=== PATIENT | male | born 1965 | race Caucasian/White ===

== ENCOUNTER → 2018-01-23 14:21 | Outpatient (CLI) | payer OTHER, SELFPAY ==
[2018-01-23 14:57] LABS: Bacteria Urine None Seen; RBC Urine None Seen (0-5/HPF)
[2018-01-23 15:14] LABS: Add Manual Diff / Slide Review NO; Basophils Percent Auto 3.7 % (0-2); Eosinophils Percent Auto 0.4 % (2-4); Hematocrit 45.6 % (41-53); Hemoglobin 15.6 g/dL (13.5-17.5); Lymphocytes Percent Auto 38.3 % (25-40); Mean Corpuscular HGB Conc 34.1 % (30-36); Mean Corpuscular Hemoglobin 31.4 PG (26-34); Mean Corpuscular Volume 91.9 fL (80-100); Monocytes Percent Auto 8.2 % (3-14); Neutrophils Absolute Auto 3200 /uL (3000-5900); Neutrophils Percent Auto 49.4 % (50-75); Platelet Count 250 X10^3/uL (150-400); Red Blood Cell Count 4.97 X10^6/uL (4.5-5.9); Red Cell Distribution Width 13.2 % (11.6-14.8); White Blood Cell Count 6.6 X10^3/uL (4.5-11.0)
[2018-01-23 15:24] LABS: Hemoglobin A1C% w Est Avg Glu 5.4 % (4.0-6.0)
[2018-01-23 15:27] LABS: Alanine Aminotransferase 42 IU/L (21-72); Albumin 4.6 g/dL (3.5-5.0); Albumin Globulin Ratio 1.7 (1.0-2.8); Alkaline Phosphatase 91 U/L (38-126); Aspartate Aminotransferase 39 IU/L (17-59); Bilirubin Total 0.4 mg/dL (0.2-1.3); Blood Urea Nitrogen 21 mg/dL (9-20); Calcium 9.2 mg/dL (8.4-10.2); Carbon Dioxide 26 mmol/L (22-32); Chloride 104 mmol/L (98-107); Cholesterol 156 mg/dL (140-199); Estimated Glomerular Filt Rate > 60.0 mL/min (>60); Globulin 2.7 g/dL (1.7-4.1); Glucose 98 mg/dL (70-100); HDL Cholesterol 43 mg/dL (40-60); HEMOLYSIS < 15 (0-50); LDL Cholesterol Calculated 79 mg/dL (<100); Potassium 3.8 mmol/L (3.4-5.1); Sodium 144 mmol/L (137-145); Total Protein 7.3 g/dL (6.3-8.2); Triglycerides 169 mg/dL (35-150)
[2018-01-23 15:40] LABS: Appearance Urine UA CLEAR; Bilirubin Urine UA NEGATIVE (NEGATIVE); Color Urine UA YELLOW; Glucose Urine UA NEGATIVE (Normal); Ketones Urine UA NEGATIVE (NEGATIVE); Leukocyte Esterase Urine UA NEGATIVE (NEGATIVE); Nitrite Urine UA NEGATIVE (Negative); Occult Blood Urine UA NEGATIVE (Negative); Protein Urine UA NEGATIVE (Negative); Specific Gravity Urine UA 1.025 (1.000-1.035); Urobilinogen Urine UA 0.2 E.U./dL (0.2)
[2018-01-23 16:11] LABS: Squamous Epithelial Cell Urine 0-1 /HPF; WBC Urine 0-1/HPF (0-5/HPF)
[2018-01-23 16:12] LABS: Culture Indicated Urine Cult Not Indicated
[2018-01-23 16:15] LABS: Thyroid Stimulating Hormone 3.02 uIU/mL (0.47-4.68)
== END ==
PROVIDERS: Visit Provider Family Medicine
DX: Z12.5 Encounter for screening for malignant neoplasm of prostate (principal); I49.1 Atrial premature depolarization; Z13.220 Encounter for screening for lipoid disorders; Z13.6 Encounter for screening for cardiovascular disorders; K58.9 Irritable bowel syndrome, unspecified
CPT/HCPCS: 36415; 80053; 80061; 81001; 83036; 84153; 84443; 85025

== ENCOUNTER → 2022-12-05 09:24 | Outpatient (CLI) | payer OTHER, SELFPAY ==
[2022-12-05 20:02] LABS: Alanine Aminotransferase 70 IU/L (<50); Albumin 4.1 g/dL (3.5-5.0); Albumin Globulin Ratio 1.5 (1.0-2.8); Alkaline Phosphatase 116 U/L (38-126); Aspartate Aminotransferase 44 IU/L (17-59); Bilirubin Total 0.6 mg/dL (0.2-1.3); Blood Urea Nitrogen 16 mg/dL (9-20); Calcium 9.4 mg/dL (8.4-10.2); Carbon Dioxide 25 mmol/L (22-32); Chloride 105 mmol/L (98-107); Cholesterol 165 mg/dL (140-199); Estimated Glomerular Filt Rate > 60 mL/min (>60); Globulin 2.7 g/dL (1.7-4.1); Glucose 109 mg/dL (70-100); HDL Cholesterol 41 mg/dL (40-60); LDL Cholesterol Calculated 100 mg/dL (<100); Potassium 4.4 mmol/L (3.4-5.1); Sodium 137 mmol/L (137-145); Total Protein 6.8 g/dL (6.3-8.2); Triglycerides 118 mg/dL (35-150)
[2022-12-05 20:03] LABS: Add Manual Diff / Slide Review NO; Basophils Absolute Auto 100 /uL (0-100); Basophils Percent Auto 0.8 % (0-2); Eosinophils Absolute Auto 100 /uL (0-450); Hematocrit 45.4 % (41-53); Hemoglobin 15.9 g/dL (13.5-17.5); Lymphocytes Absolute Auto 3100 /uL (1100-4500); Lymphocytes Percent Auto 41.5 % (25-40); Mean Corpuscular Hemoglobin 31.8 PG (26-34); Mean Corpuscular Volume 90.9 fL (80-100); Monocytes Absolute Auto 600 /uL (0-900); Neutrophils Absolute Auto 3600 /uL (1500-7000); Neutrophils Percent Auto 48.7 % (50-75); Platelet Count 273 X10^3/uL (150-400); White Blood Cell Count 7.4 X10^3/uL (4.5-11.0)
[2022-12-10 16:20] LABS: Prostate Specific Antigen Scrn 3.01 ng/mL (0.1-4.0)
[2022-12-10 17:03] LABS: HEMOLYSIS < 15 (0-50)
== END ==
PROVIDERS: PCP Family Medicine; Visit Provider Family Medicine
DX: Z13.1 Encounter for screening for diabetes mellitus (principal); Z13.6 Encounter for screening for cardiovascular disorders; C43.9 Malignant melanoma of skin, unspecified; Z12.5 Encounter for screening for malignant neoplasm of prostate
CPT/HCPCS: 80053; 80061; 85025; G0103

== ENCOUNTER → 2022-12-19 14:24 | Outpatient (CLI) | payer OTHER, SELFPAY | PROVIDERS: PCP Family Medicine; Referring Provider Family Medicine; Visit Provider Family Medicine | DX: R05.3 Chronic cough (principal); J98.8 Other specified respiratory disorders | CPT/HCPCS: 94060; 94726; 94729 ==

== ENCOUNTER → 2023-01-28 11:37 | Outpatient (CLI) | payer OTHER, SELFPAY ==
[2023-01-28 20:32] LABS: Alanine Aminotransferase 81 IU/L (<50); Albumin 3.9 g/dL (3.5-5.0); Albumin Globulin Ratio 1.4 (1.0-2.8); Alkaline Phosphatase 110 U/L (38-126); Aspartate Aminotransferase 52 IU/L (17-59); BUN Creatinine Ratio 13.3 (6-22); Bilirubin Total 0.5 mg/dL (0.2-1.3); Blood Urea Nitrogen 13 mg/dL (9-20); Calcium 9.8 mg/dL (8.4-10.2); Carbon Dioxide 29 mmol/L (22-32); Chloride 105 mmol/L (98-107); Estimated Glomerular Filt Rate > 60 mL/min (>60); Globulin 2.7 g/dL (1.7-4.1); Glucose 131 mg/dL (70-100); HEMOLYSIS < 15 (0-50); Potassium 4.5 mmol/L (3.4-5.1); Sodium 138 mmol/L (137-145); Total Protein 6.6 g/dL (6.3-8.2)
[2023-01-28 20:37] LABS: HEMOLYSIS < 15 (0-50); Iron 207 ug/dL (49-181)
[2023-01-28 20:49] LABS: Hemoglobin A1C% w Est Avg Glu 5.8 % (4.0-6.0)
[2023-01-28 20:58] LABS: Total Iron Binding Capacity 211 ug/dL (261-462); Transferrin 175 mg/dL (206-381)
[2023-01-28 21:02] LABS: Percent Iron Saturation 98 % (20-50)
[2023-01-28 21:55] LABS: Ferritin 1280 ng/mL (18-464)
[2023-01-30 03:10] LABS: Hepatitis B Core Antibody Negative (Negative)
[2023-01-30 16:56] LABS: QuantiFERON Mitogen Value >10.00 IU/mL (.); QuantiFERON Nil Value 0.04 IU/mL (.); QuantiFERON TB Gold Plus Negative (Negative); QuantiFERON TB1 Ag Value 0.04 IU/mL (.); QuantiFERON TB2 Ag Value 0.03 IU/mL (.)
[2023-01-30 17:30] LABS: Hepatitis B Surface Antigen NEGATIVE s/c (NEGATIVE)
[2023-01-30 17:52] LABS: Hep C Virus Ab w/Reflex Quant NEGATIVE s/c (NEGATIVE)
[2023-01-31 06:36] LABS: Hepatitis B Surf Ab Qualitativ Non Reactive (.)
== END ==
PROVIDERS: PCP Family Medicine; Visit Provider Family Medicine
DX: Z01.812 Encounter for preprocedural laboratory examination (principal); R73.01 Impaired fasting glucose; R74.01 Elevation of levels of liver transaminase levels; R05.3 Chronic cough
CPT/HCPCS: 80053; 82728; 83036; 83540; 83550; 84443; 86480; 86704; 86706; 86803; 87340

== ENCOUNTER → 2023-03-12 11:37 | Outpatient (CLI) | payer OTHER, SELFPAY ==
--- NOTE | 2023-03-12 11:38 | DI.CT.S_ITS ---
PROCEDURE: CT CHEST W CON INDICATIONS: 1 yr cough TECHNIQUE: After the administration of intravenous contrast, 5 mm thick sections acquired from the pulmonary apices to the posterior costophrenic angles. 1 mm axial lung, 5 mm thick coronal and sagittal reformats and 7 mm axial MIP were acquired. For radiation dose reduction, the following was used: automated exposure control, adjustment of mA and/or kV according to patient size. COMPARISON: None. FINDINGS: Image quality: Diagnostic. Lower Neck: No enlarged lymph nodes. Thyroid: 2.7 cm left thyroid nodule. Axillae: No enlarged lymph nodes. Chest Wall: Unremarkable. Bones: Unremarkable. Lungs and Pleura: No pneumothorax or pleural effusions. Calcified granuloma. Mild bronchial thickening. Heart: Heart size is normal. No pericardial effusion. Thoracic Vessels: The aorta and pulmonary arteries demonstrate normal size. Mediastinum and Nikia: No enlarged lymph nodes. Esophagus: No wall thickening. No hiatal hernia. Upper Abdomen: Visualized upper abdomen solid organs and bowel loops appear normal. IMPRESSION: Mild bronchial thickening, suggestive of bronchitis, either infectious or inflammatory. 2.7 cm left thyroid nodule. Recommend dedicated thyroid ultrasound for complete characterization. Sequela of granulomatous disease. Dictated by: Tyson Fischer M.D. on 03/12/2023 at 12:42 Approved by: Tyson Fischer M.D. on 03/12/2023 at 12:46
== END ==
LOC: CT 11:37
PROVIDERS: PCP Family Medicine; Referring Provider Family Medicine; Visit Provider Family Medicine
DX: E04.1 Nontoxic single thyroid nodule (principal); R05.3 Chronic cough; J98.4 Other disorders of lung
CPT/HCPCS: 71260; Q9967

== ENCOUNTER → 2023-03-26 11:46 | Outpatient (CLI) | payer OTHER, SELFPAY ==
--- NOTE | 2023-03-26 11:47 | DI.US.S_ITS ---
PROCEDURE: US ABDOMEN LIMITED INDICATIONS: elevated LFT and elevated trasnferrin saturation TECHNIQUE: Real-time focused scanning was performed of the abdomen, with image documentation. COMPARISON: None. FINDINGS: Suboptimal visualization due to bowel gas. The liver measures about 15 cm. Overall echogenicity is slightly increased and coarse. Main portal venous flow is hepatopetal. Gallbladder sludge. No focal tenderness. CBD measures 5 mm. Pancreatic head is unremarkable. IVC is patent. Right kidney measures 11 cm. IMPRESSION: Overall mildly increased and coarse hepatic echotexture, nonspecific, possibly fibrofatty infiltration in the setting of chronic hepatocellular disease. Gallbladder sludge. No biliary ductal dilation. No sonographic Dobbs sign. Dictated by: Daron Oakley M.D. on 03/26/2023 at 15:25 Approved by: Daron Oakley M.D. on 03/26/2023 at 15:26
--- NOTE | 2023-03-26 11:47 | DI.US.S_ITS ---
PROCEDURE: US THYROID INDICATIONS: 2.7 cm nodule left thyroid on CT scan TECHNIQUE: Real-time scanning was performed of the thyroid gland, with image documentation. COMPARISON: None. FINDINGS: Right: Thyroid lobe measures 3.8 x 2 x 1.5 cm, and is homogeneous in echotexture. Left: Thyroid lobe measures 5.1 x 1.8 x 2.1 cm, and is homogenous in echotexture. Isthmus: 0.6 cm thick. Right inferior nodule with punctate echogenic foci is solid and hypoechoic. This is highly suspicious. TR 5. This measures about 1.9 x 1.3 x 1.1 cm. Subcentimeter lesions do not require dedicated follow-up or sampling. Dominant left inferior thyroid nodule measures 2.9 x 2.6 x 2.7 cm. It is solid and hypoechoic. There may be spongiform components. Echogenic foci may be present, but is questionable. TR 4. Moderately suspicious. IMPRESSION: Bilateral thyroid nodules: highly suspicious on the right, moderately suspicious on the left. Sampling is recommended for both. ACR TI-RADS definitions and recommendations: TI-RADS 1 (benign): 0 points. FNA not needed. TI-RADS 2 (not suspicious): 2 points. FNA not needed. TI-RADS 3 (mildly suspicious): 3 points. * FNA if 2.5 cm or larger, follow up if 1.5 cm or larger (at 1, 3, and 5 years). TI-RADS 4 (moderately suspicious): 4-6 points. * FNA if 1.5 cm or larger, follow up if 1 cm or larger (at 1, 2, 3, and 5 years). TI-RADS 5 (highly suspicious): 7 points or more. * FNA if 1 cm or larger, follow up if 0.5 cm or larger (every year for 5 years). Dictated by: Daron Oakley M.D. on 03/26/2023 at 15:26 Approved by: Daron Oakley M.D. on 03/26/2023 at 15:29
== END ==
PROVIDERS: PCP Family Medicine; Referring Provider Family Medicine; Visit Provider Family Medicine
DX: K82.8 Other specified diseases of gallbladder (principal); R79.89 Other specified abnormal findings of blood chemistry; E04.2 Nontoxic multinodular goiter; R74.01 Elevation of levels of liver transaminase levels
CPT/HCPCS: 76536; 76700; 76705

== ENCOUNTER → 2023-04-11 14:06 | Outpatient (CLI) | payer OTHER, SELFPAY ==
--- NOTE | 2023-04-11 | PATH_ITS ---
Note [facility] Accession Number: [id number] TESTS RESULT FLAG UNITS REF RANGE LAB Clinician Provided Cytology Information No. of containers..01 Other (Miscellaneous) No. of containers..00 Previously Prepared Cytology Slide Source: LEFT THYROID INFERIOR NODULE #2 DIAGNOSIS: LEFT THYROID INFERIOR NODULE #2 BETHESDA CATEGORY III. FOLLICULAR LESION OF UNDETERMINED SIGNIFICANCE. SPECIMEN CONSISTS OF ABUNDANT FOLLICULAR CELLS WITH SCANT COLLOID. THE DIFFERENTIAL DIAGNOSIS INCLUDES CELLULAR ADENOMATOID NODULE AND FOLLICULAR NEOPLASM. Pathologist ICD10: 01 R89.6 Signed out by: Terrie George MD, Pathologist NPI- [id number] Performed by: Rogers Fairbanks, Embedded Developer ([facility]) Gross description: 30 CC, COLORLESS, CLEAR RECIEVED: IN CYTOLYT WITH 5 ALCOHOL FIXED AND 5 QUICK STAINED SLIDES ALSO 1 RNA VIAL WILL ON 12-06-2024.VO /VDU 04/14/2023 0719 Local FLAG LEGEND: L-Low Normal,H-High Normal,LL-Alert Low,HH-Alert High <-Panic Low,>-Panic High,A-Abnormal,AA-Critical Abnormal Performed at: 01 =[facility] [address], [place] [address] Jose Antonio Garg MD, Performed at: 01 [facility] [address], [place], [place] [id number] MD Jose Antonio Garg MD Phone: [phone]
--- NOTE | 2023-04-11 | PATH_ITS ---
Note [facility] Accession Number: [id number] TESTS RESULT FLAG UNITS REF RANGE LAB Clinician Provided Cytology Information No. of containers..01 Other (Miscellaneous) No. of containers..04 Previously Prepared Cytology Slide Source: RIGHT THYROID INFERIOR NODULE #1 DIAGNOSIS: RIGHT THYROID INFERIOR NODULE #1 INADEQUATE, INSUFFICIENT CELLS FOR STUDY. BETHESDA CATEGORY I. NONDIAGNOSTIC: VIRTUALLY ACELLULAR SPECIMEN. COMMENT: Only rare groups of follicular cells are identified (less than 6 groups) in a background of colloid and blood, inadequate for evaluation. Pathologist ICD10: 01 E04.1 Signed out by: Terrie George MD, Pathologist NPI- [id number] Performed by: Jules Nair, Medical Practitioners ([facility]) Gross description: 30 CC, COLORLESS, CLEAR RECIEVED: IN CYTOLYT WITH 7 ALCOHOL FIXED AND 7 QUICK STAINED SLIDES ALSO 1 RNA VIAL WILL ON 12-06-2024.VO /VDU 04/14/2023 0718 Local FLAG LEGEND: L-Low Normal,H-High Normal,LL-Alert Low,HH-Alert High <-Panic Low,>-Panic High,A-Abnormal,AA-Critical Abnormal Performed at: 01 =Z [facility] [address], [place] [address] Jose Antonio Garg MD, Performed at: 01 [facility] [address], [place], [place] [id number] MD Jose Antonio Garg MD Phone: [phone]
--- NOTE | 2023-04-11 14:07 | DI.US.S_ITS ---
PROCEDURE: US FINE NEEDLE ASPIRATION INDICATIONS: 2 thyroid nodules TECHNIQUE: The indications, alternatives, benefits, risks, and complications of the procedure were explained to the patient. Written informed consent was obtained and placed in the chart. The thyroid region was examined sonographically and a site was chosen for ultrasound guided percutaneous sampling. The skin was prepared and draped in the usual fashion, and anesthetized with 1% lidocaine infiltrated from the skin down to the thyroid gland. Multiple passes were then performed, with contents emptied into an appropriate pathology specimen container. A bandage was applied to the area of access at completion of the study. COMPARISON: None. FINDINGS: Location(s) of lesion(s) sampled: Right and left thyroid nodule [place]: 25 gauge hypodermic needles. Number of passes: 6 passes per nodule Medications: 1% lidocaine for local anaesthesia. Complications: None. IMPRESSION: Successful ultrasound-guided thyroid nodule fine needle aspiration, with cytology results pending. Please see chart below for management recommendations based on cytology results. [facility] ReportingRecommendationsNon-diagnostic* Repeat US-guided FNA, with on-site cytology evaluation if possible. * Repeated non-diagnostic nodules without high suspicion US features: close observation vs surgical consult. * Consider surgery if nodule has high suspicion US features, grows >20% in 2 dimensions on followup, or patient has clinical risk factors for malignancy. Benign* If nodule has high suspicion US features: repeat US and FNA within 12 months. * If nodule has low to intermediate suspicion US features: repeat US at 12-24 months. If nodule grows (20% increase in at least 2 dimensions, with minimal increase of 2 mm or >50% change in volume), or development of new suspicious US features, then repeat FNA or continue followup. * If nodule has very low suspicion US features: followup US at >24 months. Atypia of undetermined significance, follicular lesion of undetermined significanceRepeat FNA, molecular testing, followup US, or surgical consult.Follicular neoplasm, suspicious for follicular neoplasmSurgical consult; also consider molecular testing. Suspicious for malignancySurgical consult.MalignantSurgical consult. Dictated by: Christine Briggs M.D. on 04/12/2023 at 11:56 Approved by: Christine Briggs M.D. on 04/12/2023 at 11:57
== END ==
LOC: US 14:06
PROVIDERS: PCP Family Medicine; Referring Provider Family Medicine; Visit Provider Family Medicine
DX: E04.2 Nontoxic multinodular goiter (principal)
CPT/HCPCS: 10005; 10006

== ENCOUNTER → 2023-04-30 11:10 | Outpatient (CLI) | payer SELFPAY ==
[2023-04-30 18:55] LABS: INR 0.9 (0.9-1.3); Prothrombin Time 10.5 SECONDS (9.4-12.5)
[2023-04-30 19:14] LABS: Add Manual Diff / Slide Review NO; Basophils Absolute Auto 100 /uL (0-100); Basophils Percent Auto 1.3 % (0-2); Eosinophils Absolute Auto 100 /uL (0-450); Eosinophils Percent Auto 1.1 % (2-4); Hematocrit 47.4 % (41-53); Hemoglobin 16.1 g/dL (13.5-17.5); Lymphocytes Absolute Auto 3000 /uL (1100-4500); Mean Corpuscular Hemoglobin 31.7 PG (26-34); Mean Corpuscular Volume 93.4 fL (80-100); Monocytes Absolute Auto 500 /uL (0-900); Neutrophils Absolute Auto 3900 /uL (1500-7000); Neutrophils Percent Auto 51.6 % (50-75); Platelet Count 259 X10^3/uL (150-400); Red Blood Cell Count 5.07 X10^6/uL (4.5-5.9); Red Cell Distribution Width 13.7 % (11.6-14.8); White Blood Cell Count 7.6 X10^3/uL (4.5-11.0)
[2023-04-30 19:39] LABS: Alanine Aminotransferase 73 IU/L (<50); Albumin 4.2 g/dL (3.5-5.0); Albumin Globulin Ratio 1.4 (1.0-2.8); Alkaline Phosphatase 92 U/L (38-126); Aspartate Aminotransferase 81 IU/L (17-59); BUN Creatinine Ratio 18.4 (6-22); Bilirubin Total 0.7 mg/dL (0.2-1.3); Blood Urea Nitrogen 19 mg/dL (9-20); Calcium 9.6 mg/dL (8.4-10.2); Carbon Dioxide 29 mmol/L (22-32); Chloride 107 mmol/L (98-107); Estimated Glomerular Filt Rate > 60 mL/min (>60); Glucose 104 mg/dL (70-100); HEMOLYSIS 16 (0-50); HEMOLYSIS < 15 (0-50); Iron 224 ug/dL (49-181); Potassium 4.5 mmol/L (3.4-5.1); Sodium 141 mmol/L (137-145); Total Protein 7.2 g/dL (6.3-8.2)
[2023-04-30 19:53] LABS: Total Iron Binding Capacity 221 ug/dL (261-462); Transferrin 175 mg/dL (206-381)
[2023-04-30 19:54] LABS: Percent Iron Saturation 101 % (20-50)
== END ==
PROVIDERS: PCP Family Medicine; Visit Provider Internal Medicine Gastroenterology
DX: R79.89 Other specified abnormal findings of blood chemistry (principal); R74.01 Elevation of levels of liver transaminase levels
CPT/HCPCS: 80053; 81256; 83540; 83550; 85025; 85610

== ENCOUNTER → 2023-07-23 14:04 | Outpatient (CLI) | payer OTHER, SELFPAY ==
--- NOTE | 2023-07-23 | PATH_ITS ---
Note [facility] Accession Number: [id number] TESTS RESULT FLAG UNITS REF RANGE LAB Clinician Provided Cytology Information No. of containers..01 Other (Miscellaneous) No. of containers..02 Previously Prepared Cytology Slide Source: RIGHT THYROID NODULE A' DIAGNOSIS: RIGHT THYROID NODULE A' ATYPIA OF UNDETERMINED SIGNIFICANCE. BETHESDA CATEGORY III. ATYPIA OF UNDETERMINED SIGNIFIANCE - NUCLEAR ATYPIA. MOLECULAR STUDIES PENDING ([facility]); RESULTS WILL BE REPORTED SEPARATELY. Pathologist ICD10: R89.6 Signed out by: Lorena Hill MD, Pathologist NPI- [id number] Performed by: Reyes Conroy, Sales Office Manager ([facility]) Gross description: 30 CC, RED, CLOUDY RECIEVED: IN CYTOLYT WITH 6 ALCOHOL FIXED AND 6 QUICK STAINED SLIDES ALSO 1 RNA VIAL WILL ON 02-11-2025.VO /VDU 07/24/2023 0530 Local FLAG LEGEND: L-Low Normal,H-High Normal,LL-Alert Low,HH-Alert High <-Panic Low,>-Panic High,A-Abnormal,AA-Critical Abnormal Performed at: 01 =Z [facility], [place] [address] Jose Antonio Garg MD, Specimen Comment: [id number] Performed at: [address], [place], [place] [id number] MD Jose Antonio Garg MD Phone: [phone]
--- NOTE | 2023-07-23 | PATH_ITS ---
Note [facility] Accession Number: [id number] TESTS RESULT FLAG UNITS REF RANGE LAB Clinician Provided Cytology Information No. of containers..01 Other (Miscellaneous) No. of containers..02 Previously Prepared Cytology Slide Source: LEFT THYROID NODULE B DIAGNOSIS: LEFT THYROID NODULE B ATYPIA OF UNDETERMINED SIGNIFICANCE. BETHESDA CATEGORY III. ATYPIA OF UNDETERMINED SIGNIFIANCE - NUCLEAR ATYPIA. MOLECULAR STUDIES PENDING (INTEGRATED ONCOLOGY); RESULTS WILL BE REPORTED SEPARATELY. Pathologist ICD10: R89.6 Signed out by: Lorena Hill MD, Pathologist NPI- [id number] Performed by: René Max, [place] Oven Operator ([facility]) Gross description: 30 CC, RED, CLOUDY RECIEVED: IN CYTOLYT WITH 6 ALCOHOL FIXED AND 6 QUICK STAINED SLIDES ALSO 1 RNA VIAL WILL ON 02-11-2025.VO /VDU 07/24/2023 0530 Local FLAG LEGEND: L-Low Normal,H-High Normal,LL-Alert Low,HH-Alert High <-Panic Low,>-Panic High,A-Abnormal,AA-Critical Abnormal Performed at: 01 =Z [facility] [address], [place] [address] Jose Antonio Garg MD, Specimen Comment: [id number] Performed at: 01 [facility] [address], [place], [place] [id number] MD Jose Antonio Garg MD Phone: [phone]
--- NOTE | 2023-07-23 14:05 | DI.US.S_ITS ---
PROCEDURE: US FINE NEEDLE ASPIRATION INDICATIONS: THYROID NODULE RT AND LT INF NODULE TECHNIQUE: The indications, alternatives, benefits, risks, and complications of the procedure were explained to the patient. Written informed consent was obtained and placed in the chart. The area of interest was examined sonographically and a site was chosen for ultrasound guided percutaneous sampling. The skin was prepared and draped in the usual fashion, and anesthetized with 1% lidocaine infiltrated from the skin down to the lesion. Multiple passes were then performed, with contents emptied into an appropriate pathology specimen container. A bandage was applied to the area of access at completion of the study. COMPARISON: Located Within [facility], , US FINE NEEDLE ASPIRATION, 04/11/2023, 14:40. FINDINGS: Location(s) of lesion(s) sampled: Right inferior measuring 1.9 cm. [place]: 25 gauge hypodermic needles x3. 22 gauge hypodermic needles x3. Medications: 1% lidocaine for local anaesthesia. Complications: None. Location(s) of lesion(s) sampled: Left inferior measuring 2.9 cm. [place]: 25 gauge hypodermic needles x3. 22 gauge hypodermic needles x3. Medications: 1% lidocaine for local anaesthesia. Complications: None. IMPRESSION: Successful ultrasound-guided right and left inferior thyroid nodules fine needle aspiration, with cytology results pending. Dictated by: Maximus Sigala M.D. on 07/23/2023 at 17:04 Approved by: Maximus Sigala M.D. on 07/23/2023 at 17:10
== END ==
PROVIDERS: PCP Family Medicine; Referring Provider Internal Medicine Endocrinology, Diabetes & Metabolism; Visit Provider Internal Medicine Endocrinology, Diabetes & Metabolism
DX: E04.2 Nontoxic multinodular goiter (principal)
CPT/HCPCS: 10005; 10006

== ENCOUNTER → 2023-09-18 10:52 | Outpatient (CLI) | payer OTHER, SELFPAY ==
[2023-09-18 11:17] LABS: Hematocrit 47.6 % (41-53); Hemoglobin 16.6 g/dL (13.5-17.5); Mean Corpuscular HGB Conc 34.8 % (30-36); Mean Corpuscular Hemoglobin 31.9 PG (26-34); Mean Corpuscular Volume 91.6 fL (80-100); Platelet Count 290 X10^3/uL (150-400); Red Blood Cell Count 5.19 X10^6/uL (4.5-5.9); Red Cell Distribution Width 13.1 % (11.6-14.8); White Blood Cell Count 7.9 X10^3/uL (4.5-11.0)
[2023-09-18 12:09] LABS: 585 Gram Check PASS; Amount Collected in g 585 g; Amount Collected mL calc 508 mL; Patient Weight <110 lb NO; Postsystolic BP 125 mmHg; Prediastolic 80 mmHg; Presystolic 116 mmHg; Pulse 66 bpm; Site of phlebotomy Right antecubital; Temperature 97.6; Therapeutic Phleb Consent Chec Consent signed @ reg; Therapeutic Phleb Start Time 1130; Therapeutic Phleb Stop Time 1145; Zero Check Sebra Scale PASS
[2023-09-18 12:10] LABS: Postdiastolic BP 85 mmHg
[2023-09-18 13:24] LABS: Ferritin 1100 ng/mL (18-464)
== END ==
PROVIDERS: PCP Family Medicine; Referring Provider Internal Medicine Gastroenterology; Visit Provider Internal Medicine Gastroenterology
DX: E83.110 Hereditary hemochromatosis (principal)
CPT/HCPCS: 36415; 82728; 85027; 99195

== ENCOUNTER → 2023-10-29 11:17 | Outpatient (CLI) | payer BC, SELFPAY ==
[2023-10-29 11:37] LABS: Add Manual Diff / Slide Review NO; Basophils Absolute Auto 100 /uL (0-100); Basophils Percent Auto 2.1 % (0-2); Eosinophils Absolute Auto 100 /uL (0-450); Eosinophils Percent Auto 0.9 % (2-4); Hematocrit 44.8 % (41-53); Hemoglobin 15.8 g/dL (13.5-17.5); Lymphocytes Absolute Auto 2600 /uL (1100-4500); Lymphocytes Percent Auto 39.8 % (25-40); Mean Corpuscular HGB Conc 35.2 % (30-36); Mean Corpuscular Hemoglobin 32.4 PG (26-34); Mean Corpuscular Volume 91.8 fL (80-100); Monocytes Absolute Auto 400 /uL (0-900); Monocytes Percent Auto 5.9 % (3-14); Neutrophils Absolute Auto 3300 /uL (1500-7000); Neutrophils Percent Auto 51.3 % (50-75); Platelet Count 283 X10^3/uL (150-400); Red Blood Cell Count 4.88 X10^6/uL (4.5-5.9); Red Cell Distribution Width 13.2 % (11.6-14.8); White Blood Cell Count 6.5 X10^3/uL (4.5-11.0)
[2023-10-29 12:08] LABS: 585 Gram Check PASS; Amount Collected in g 585 g; Amount Collected mL calc 508 mL; Patient Weight <110 lb NO; Postdiastolic BP 85 mmHg; Postsystolic BP 119 mmHg; Prediastolic 79 mmHg; Presystolic 127 mmHg; Pulse 75 bpm; Site of phlebotomy Right antecubital; Temperature 98.6; Therapeutic Phleb Consent Chec Consent signed @ reg; Therapeutic Phleb Start Time 1150; Therapeutic Phleb Stop Time 1203; Zero Check Sebra Scale PASS
[2023-10-29 12:22] LABS: Ferritin 733 ng/mL (18-464)
== END ==
PROVIDERS: PCP Family Medicine; Referring Provider Internal Medicine Gastroenterology; Visit Provider Internal Medicine Gastroenterology
DX: E83.110 Hereditary hemochromatosis (principal)
CPT/HCPCS: 36415; 82728; 85025; 99195

== ENCOUNTER → 2024-01-09 10:53 | Outpatient (CLI) | payer BC, SELFPAY ==
[2024-01-09 12:52] LABS: 585 Gram Check PASS; Amount Collected in g 585 g; Amount Collected mL calc 508 mL; Patient Weight <110 lb NO; Postdiastolic BP 83 mmHg; Postsystolic BP 124 mmHg; Prediastolic 84 mmHg; Presystolic 129 mmHg; Pulse 79 bpm; Site of phlebotomy Right antecubital; Temperature 79; Therapeutic Phleb Consent Chec Consent signed @ reg; Therapeutic Phleb Start Time 1235; Therapeutic Phleb Stop Time 1250; Zero Check Sebra Scale PASS
[2024-01-09 13:07] LABS: Hematocrit 45.5 % (41-53); Hemoglobin 15.8 g/dL (13.5-17.5); Mean Corpuscular HGB Conc 34.7 % (30-36); Mean Corpuscular Hemoglobin 31.8 PG (26-34); Mean Corpuscular Volume 91.8 fL (80-100); Platelet Count 264 X10^3/uL (150-400); Red Blood Cell Count 4.95 X10^6/uL (4.5-5.9); Red Cell Distribution Width 12.8 % (11.6-14.8); White Blood Cell Count 7.6 X10^3/uL (4.5-11.0)
[2024-01-09 14:07] LABS: Ferritin 836 ng/mL (18-464)
== END ==
PROVIDERS: PCP Family Medicine; Referring Provider Internal Medicine Gastroenterology; Visit Provider Internal Medicine Gastroenterology
DX: E83.110 Hereditary hemochromatosis (principal)
CPT/HCPCS: 82728; 85027; 99195

== ENCOUNTER → 2024-03-02 10:51 | Outpatient (CLI) | payer BC, SELFPAY ==
[2024-03-02 11:39] LABS: 585 Gram Check PASS; Amount Collected in g 585 g; Amount Collected mL calc 508 mL; Patient Weight <110 lb NO; Postdiastolic BP 84 mmHg; Postsystolic BP 130 mmHg; Prediastolic 84 mmHg; Presystolic 130 mmHg; Pulse 94 bpm; Site of phlebotomy Right antecubital; Temperature 97.2; Therapeutic Phleb Consent Chec Consent signed @ reg; Therapeutic Phleb Start Time 1125; Therapeutic Phleb Stop Time 1130; Zero Check Sebra Scale PASS
[2024-03-02 11:44] LABS: Hemoglobin 16.1 g/dL (13.5-17.5)
[2024-03-02 13:21] LABS: Ferritin 1380 ng/mL (18-464)
== END ==
PROVIDERS: PCP Family Medicine; Referring Provider Internal Medicine Gastroenterology; Visit Provider Internal Medicine Gastroenterology
DX: E83.110 Hereditary hemochromatosis (principal)
CPT/HCPCS: 82728; 85014; 85018; 99195

== ENCOUNTER → 2024-03-16 10:53 | Outpatient (CLI) | payer BC, SELFPAY ==
[2024-03-16 11:42] LABS: Hematocrit 41.8 % (41-53); Hemoglobin 14.4 g/dL (13.5-17.5); Mean Corpuscular HGB Conc 34.5 % (30-36); Mean Corpuscular Hemoglobin 32.2 PG (26-34); Mean Corpuscular Volume 93.2 fL (80-100); Platelet Count 290 X10^3/uL (150-400); Red Blood Cell Count 4.48 X10^6/uL (4.5-5.9); White Blood Cell Count 8.5 X10^3/uL (4.5-11.0)
[2024-03-16 11:43] LABS: 585 Gram Check PASS; Patient Weight <110 lb NO; Prediastolic 77 mmHg; Presystolic 131 mmHg; Pulse 72 bpm; Therapeutic Phleb Consent Chec Consent signed @ reg; Therapeutic Phleb Start Time 1115; Zero Check Sebra Scale PASS
[2024-03-16 11:44] LABS: Amount Collected in g 585 g; Amount Collected mL calc 508 mL; Postdiastolic BP 77 mmHg; Postsystolic BP 124 mmHg; Site of phlebotomy Right antecubital; Therapeutic Phleb Stop Time 1130
[2024-03-16 12:31] LABS: Ferritin 832 ng/mL (18-464)
== END ==
PROVIDERS: PCP Family Medicine; Referring Provider Internal Medicine Gastroenterology; Visit Provider Internal Medicine Gastroenterology
DX: E83.110 Hereditary hemochromatosis (principal)
CPT/HCPCS: 82728; 85027; 99195

== ENCOUNTER → 2024-04-06 10:29 | Outpatient (CLI) | payer BC, SELFPAY ==
[2024-04-06 11:21] LABS: 585 Gram Check PASS; Amount Collected in g 585 g; Amount Collected mL calc 508 mL; Patient Weight <110 lb NO; Postdiastolic BP 76 mmHg; Postsystolic BP 111 mmHg; Prediastolic 75 mmHg; Presystolic 117 mmHg; Pulse 70 bpm; Site of phlebotomy Right antecubital; Temperature 97.9; Therapeutic Phleb Consent Chec Consent signed @ reg; Therapeutic Phleb Start Time 1049; Therapeutic Phleb Stop Time 1120; Zero Check Sebra Scale PASS
[2024-04-06 11:36] LABS: Hematocrit 45.1 % (41-53); Hemoglobin 15.1 g/dL (13.5-17.5); Mean Corpuscular HGB Conc 33.6 % (30-36); Mean Corpuscular Hemoglobin 32.1 PG (26-34); Mean Corpuscular Volume 95.5 fL (80-100); Platelet Count 320 X10^3/uL (150-400); Red Blood Cell Count 4.72 X10^6/uL (4.5-5.9); Red Cell Distribution Width 13.7 % (11.6-14.8); White Blood Cell Count 6.2 X10^3/uL (4.5-11.0)
[2024-04-06 12:34] LABS: Ferritin 729 ng/mL (18-464)
== END ==
PROVIDERS: PCP Family Medicine; Referring Provider Internal Medicine Gastroenterology; Visit Provider Internal Medicine Gastroenterology
DX: E83.10 Disorder of iron metabolism, unspecified (principal)
CPT/HCPCS: 82728; 85027; 99195

== ENCOUNTER → 2024-04-20 10:32 | Outpatient (CLI) | payer BC, SELFPAY ==
[2024-04-20 11:04] LABS: Add Manual Diff / Slide Review NO; Basophils Absolute Auto 100 /uL (0-100); Eosinophils Absolute Auto 100 /uL (0-450); Eosinophils Percent Auto 0.9 % (2-4); Hematocrit 45.5 % (41-53); Hemoglobin 15.6 g/dL (13.5-17.5); Lymphocytes Absolute Auto 2800 /uL (1100-4500); Lymphocytes Percent Auto 38.4 % (25-40); Mean Corpuscular HGB Conc 34.2 % (30-36); Mean Corpuscular Hemoglobin 32.5 PG (26-34); Monocytes Absolute Auto 600 /uL (0-900); Monocytes Percent Auto 7.8 % (3-14); Neutrophils Absolute Auto 3800 /uL (1500-7000); Neutrophils Percent Auto 50.9 % (50-75); Platelet Count 338 X10^3/uL (150-400); Red Blood Cell Count 4.79 X10^6/uL (4.5-5.9); Red Cell Distribution Width 13.6 % (11.6-14.8); White Blood Cell Count 7.4 X10^3/uL (4.5-11.0)
[2024-04-20 11:20] LABS: 585 Gram Check PASS; Amount Collected in g 585 g; Amount Collected mL calc 508 mL; Patient Weight <110 lb NO; Postdiastolic BP 74 mmHg; Postsystolic BP 115 mmHg; Prediastolic 74 mmHg; Presystolic 122 mmHg; Pulse 77 bpm; Site of phlebotomy Right antecubital; Temperature 97.6; Therapeutic Phleb Consent Chec Consent signed @ reg; Therapeutic Phleb Start Time 1110; Therapeutic Phleb Stop Time 1130; Zero Check Sebra Scale PASS
[2024-04-20 12:34] LABS: Ferritin 754 ng/mL (18-464)
== END ==
PROVIDERS: PCP Family Medicine; Referring Provider Internal Medicine Gastroenterology; Visit Provider Internal Medicine Gastroenterology
DX: E83.110 Hereditary hemochromatosis (principal)
CPT/HCPCS: 82728; 85025; 99195

== ENCOUNTER → 2024-05-04 10:48 | Outpatient (CLI) | payer BC, SELFPAY ==
[2024-05-04 11:28] LABS: Hematocrit 47.9 % (41-53); Hemoglobin 16.3 g/dL (13.5-17.5); Mean Corpuscular Hemoglobin 32.4 PG (26-34); Mean Corpuscular Volume 95.1 fL (80-100); Platelet Count 343 X10^3/uL (150-400); Red Blood Cell Count 5.04 X10^6/uL (4.5-5.9); Red Cell Distribution Width 13.1 % (11.6-14.8); White Blood Cell Count 7.3 X10^3/uL (4.5-11.0)
[2024-05-04 11:57] LABS: 585 Gram Check PASS; Patient Weight <110 lb NO; Prediastolic 80 mmHg; Presystolic 127 mmHg; Pulse 95 bpm; Site of phlebotomy Right antecubital; Temperature 97.3; Therapeutic Phleb Consent Chec Consent signed @ reg; Zero Check Sebra Scale PASS
[2024-05-04 11:58] LABS: Amount Collected in g 585 g; Amount Collected mL calc 508 mL; Postdiastolic BP 81 mmHg; Postsystolic BP 101 mmHg; Therapeutic Phleb Start Time 1135; Therapeutic Phleb Stop Time 1145
[2024-05-04 12:33] LABS: Ferritin 781 ng/mL (18-464)
== END ==
PROVIDERS: PCP Family Medicine; Referring Provider Internal Medicine Gastroenterology; Visit Provider Internal Medicine Gastroenterology
DX: E83.110 Hereditary hemochromatosis (principal)
CPT/HCPCS: 82728; 85027; 99195

== ENCOUNTER → 2024-05-18 10:51 | Outpatient (CLI) | payer BC, SELFPAY ==
[2024-05-18 11:35] LABS: Hematocrit 43.9 % (41-53); Hemoglobin 15.1 g/dL (13.5-17.5); Mean Corpuscular HGB Conc 34.3 % (30-36); Mean Corpuscular Hemoglobin 32.6 PG (26-34); Mean Corpuscular Volume 95.1 fL (80-100); Platelet Count 249 X10^3/uL (150-400); Red Blood Cell Count 4.62 X10^6/uL (4.5-5.9); Red Cell Distribution Width 13.5 % (11.6-14.8)
[2024-05-18 12:20] LABS: Ferritin 530 ng/mL (18-464)
[2024-05-18 13:32] LABS: 585 Gram Check PASS; Patient Weight <110 lb NO; Therapeutic Phleb Consent Chec Consent signed @ reg; Zero Check Sebra Scale PASS
[2024-05-18 13:33] LABS: Amount Collected in g 585 g; Amount Collected mL calc 508 mL; Postdiastolic BP 72 mmHg; Postsystolic BP 120 mmHg; Prediastolic 70 mmHg; Presystolic 128 mmHg; Pulse 89 bpm; Site of phlebotomy Right antecubital; Temperature 97.9; Therapeutic Phleb Start Time 1140; Therapeutic Phleb Stop Time 1150
== END ==
PROVIDERS: PCP Family Medicine; Referring Provider Internal Medicine Gastroenterology; Visit Provider Internal Medicine Gastroenterology
DX: E83.110 Hereditary hemochromatosis (principal)
CPT/HCPCS: 82728; 85027; 99195

== ENCOUNTER → 2024-06-01 11:28 | Outpatient (CLI) | payer BC, SELFPAY ==
[2024-06-01 11:52] LABS: Hematocrit 43.2 % (41-53); Mean Corpuscular HGB Conc 34.6 % (30-36); Mean Corpuscular Hemoglobin 32.6 PG (26-34); Mean Corpuscular Volume 94.1 fL (80-100); Platelet Count 356 X10^3/uL (150-400); Red Blood Cell Count 4.59 X10^6/uL (4.5-5.9); Red Cell Distribution Width 13.5 % (11.6-14.8); White Blood Cell Count 10.9 X10^3/uL (4.5-11.0)
[2024-06-01 12:04] LABS: 585 Gram Check PASS; Patient Weight <110 lb NO; Prediastolic 81 mmHg; Presystolic 138 mmHg; Pulse 94 bpm; Temperature 97.7; Therapeutic Phleb Consent Chec Consent signed @ reg; Therapeutic Phleb Start Time 1155; Zero Check Sebra Scale PASS
[2024-06-01 12:05] LABS: Amount Collected in g 585 g; Amount Collected mL calc 508 mL; Postdiastolic BP 80 mmHg; Postsystolic BP 117 mmHg; Site of phlebotomy Right antecubital; Therapeutic Phleb Stop Time 1205
[2024-06-01 12:46] LABS: Ferritin 602 ng/mL (18-464)
== END ==
PROVIDERS: PCP Family Medicine; Referring Provider Internal Medicine Gastroenterology; Visit Provider Internal Medicine Gastroenterology
DX: E83.110 Hereditary hemochromatosis (principal)
CPT/HCPCS: 82728; 85027; 99195

== ENCOUNTER → 2024-06-15 08:35 | Outpatient (CLI) | payer BC, SELFPAY ==
[2024-06-15 10:08] LABS: Hemoglobin 14.3 g/dL (13.5-17.5); Mean Corpuscular HGB Conc 33.2 % (30-36); Mean Corpuscular Hemoglobin 31.7 PG (26-34); Mean Corpuscular Volume 95.6 fL (80-100); Platelet Count 297 X10^3/uL (150-400); Red Cell Distribution Width 13.4 % (11.6-14.8)
[2024-06-15 11:12] LABS: Ferritin 475 ng/mL (18-464)
[2024-06-15 11:45] LABS: 585 Gram Check PASS; Amount Collected in g 585 g; Amount Collected mL calc 508 mL; Patient Weight <110 lb NO; Postdiastolic BP 78 mmHg; Postsystolic BP 123 mmHg; Prediastolic 84 mmHg; Presystolic 142 mmHg; Pulse 83 bpm; Site of phlebotomy Right antecubital; Therapeutic Phleb Consent Chec Consent signed @ reg; Therapeutic Phleb Start Time 1100; Therapeutic Phleb Stop Time 1110; Zero Check Sebra Scale PASS
== END ==
PROVIDERS: PCP Family Medicine; Referring Provider Internal Medicine Gastroenterology; Visit Provider Internal Medicine Gastroenterology
DX: E83.110 Hereditary hemochromatosis (principal)
CPT/HCPCS: 82728; 85027; 99195

== ENCOUNTER → 2024-07-01 11:05 | Outpatient (CLI) | payer BC, SELFPAY ==
[2024-07-01 11:28] LABS: Add Manual Diff / Slide Review NO; Basophils Absolute Auto 100 /uL (0-100); Basophils Percent Auto 0.9 % (0-2); Eosinophils Absolute Auto 100 /uL (0-450); Eosinophils Percent Auto 0.9 % (2-4); Hematocrit 47.3 % (41-53); Hemoglobin 15.9 g/dL (13.5-17.5); Lymphocytes Absolute Auto 2800 /uL (1100-4500); Lymphocytes Percent Auto 31.7 % (25-40); Mean Corpuscular HGB Conc 33.6 % (30-36); Mean Corpuscular Hemoglobin 32.1 PG (26-34); Mean Corpuscular Volume 95.4 fL (80-100); Monocytes Absolute Auto 700 /uL (0-900); Monocytes Percent Auto 7.4 % (3-14); Neutrophils Absolute Auto 5200 /uL (1500-7000); Neutrophils Percent Auto 59.1 % (50-75); Platelet Count 287 X10^3/uL (150-400); Red Blood Cell Count 4.96 X10^6/uL (4.5-5.9); Red Cell Distribution Width 13.5 % (11.6-14.8); White Blood Cell Count 8.9 X10^3/uL (4.5-11.0)
[2024-07-01 12:00] LABS: 585 Gram Check PASS; Patient Weight <110 lb NO; Pulse 81 bpm; Therapeutic Phleb Consent Chec Consent signed @ reg; Zero Check Sebra Scale PASS
[2024-07-01 12:01] LABS: Amount Collected in g 585 g; Amount Collected mL calc 508 mL; Postdiastolic BP 75 mmHg; Postsystolic BP 133 mmHg; Prediastolic 78 mmHg; Presystolic 130 mmHg; Site of phlebotomy Right antecubital; Temperature 97.2; Therapeutic Phleb Start Time 1145; Therapeutic Phleb Stop Time 1200
[2024-07-01 12:31] LABS: Ferritin 391 ng/mL (18-464)
== END ==
PROVIDERS: Internal Medicine Gastroenterology; PCP Family Medicine; Referring Provider Family Medicine; Visit Provider Family Medicine
DX: E83.119 Hemochromatosis, unspecified (principal)
CPT/HCPCS: 82728; 85025; 99195

== ENCOUNTER → 2024-07-22 09:17 | Outpatient (CLI) | payer BC, SELFPAY ==
[2024-07-22 10:09] LABS: Add Manual Diff / Slide Review NO; Basophils Absolute Auto 200 /uL (0-100); Basophils Percent Auto 2.9 % (0-2); Eosinophils Absolute Auto 100 /uL (0-450); Eosinophils Percent Auto 1.6 % (2-4); Hematocrit 44.1 % (41-53); Hemoglobin 15.3 g/dL (13.5-17.5); Lymphocytes Absolute Auto 3100 /uL (1100-4500); Lymphocytes Percent Auto 37.8 % (25-40); Mean Corpuscular HGB Conc 34.7 % (30-36); Mean Corpuscular Hemoglobin 32.5 PG (26-34); Mean Corpuscular Volume 93.7 fL (80-100); Monocytes Absolute Auto 700 /uL (0-900); Monocytes Percent Auto 8.4 % (3-14); Neutrophils Absolute Auto 4000 /uL (1500-7000); Neutrophils Percent Auto 49.3 % (50-75); Platelet Count 287 X10^3/uL (150-400); Red Blood Cell Count 4.71 X10^6/uL (4.5-5.9); Red Cell Distribution Width 13.2 % (11.6-14.8); White Blood Cell Count 8.1 X10^3/uL (4.5-11.0)
[2024-07-22 10:50] LABS: 585 Gram Check PASS; Patient Weight <110 lb NO; Therapeutic Phleb Consent Chec Consent signed @ reg; Zero Check Sebra Scale PASS
[2024-07-22 10:51] LABS: Amount Collected in g 585 g; Amount Collected mL calc 508 mL; Amount to Collect in grams 585 g; Prediastolic 78 mmHg; Presystolic 117 mmHg; Pulse 74 bpm; Site of phlebotomy Right antecubital; Temperature 97.6; Therapeutic Phleb Stop Time 1035
[2024-07-22 10:52] LABS: Dizziness N; Postdiastolic BP 78 mmHg; Postsystolic BP 114 mmHg; Swelling N
[2024-07-22 10:59] LABS: Ferritin 403 ng/mL (18-464)
[2024-07-22 12:05] LABS: Therapeutic Phleb Start Time 1028
== END ==
PROVIDERS: PCP Family Medicine; Referring Provider Internal Medicine Gastroenterology; Visit Provider Internal Medicine Gastroenterology
DX: E83.119 Hemochromatosis, unspecified (principal)
CPT/HCPCS: 82728; 85025; 99195

== ENCOUNTER → 2024-08-17 12:02 | Outpatient (CLI) | payer BC, SELFPAY ==
[2024-08-17 12:31] LABS: Add Manual Diff / Slide Review NO; Basophils Absolute Auto 100 /uL (0-100); Basophils Percent Auto 2.1 % (0-2); Eosinophils Absolute Auto 100 /uL (0-450); Hematocrit 47.5 % (41-53); Hemoglobin 16.6 g/dL (13.5-17.5); Lymphocytes Absolute Auto 2900 /uL (1100-4500); Lymphocytes Percent Auto 42.2 % (25-40); Mean Corpuscular HGB Conc 34.9 % (30-36); Mean Corpuscular Hemoglobin 32.3 PG (26-34); Mean Corpuscular Volume 92.7 fL (80-100); Monocytes Absolute Auto 400 /uL (0-900); Monocytes Percent Auto 5.5 % (3-14); Neutrophils Absolute Auto 3400 /uL (1500-7000); Neutrophils Percent Auto 49.2 % (50-75); Platelet Count 278 X10^3/uL (150-400); Red Blood Cell Count 5.13 X10^6/uL (4.5-5.9); Red Cell Distribution Width 13.3 % (11.6-14.8); White Blood Cell Count 6.9 X10^3/uL (4.5-11.0)
[2024-08-17 12:59] LABS: 585 Gram Check PASS; Patient Weight <110 lb NO; Therapeutic Phleb Consent Chec Consent signed @ reg; Zero Check Sebra Scale PASS
[2024-08-17 13:00] LABS: Amount Collected in g 585 g; Amount Collected mL calc 508 mL; Postsystolic BP 131 mmHg; Prediastolic 78 mmHg; Presystolic 137 mmHg; Pulse 89 bpm; Site of phlebotomy Right antecubital; Temperature 98.4; Therapeutic Phleb Start Time 1236; Therapeutic Phleb Stop Time 1250
[2024-08-17 13:01] LABS: Dizziness N; Postdiastolic BP 81 mmHg; Swelling N; Therapeutic Phleb Comment PT LEFT FINE
[2024-08-17 13:18] LABS: Ferritin 390 ng/mL (18-464)
== END ==
PROVIDERS: PCP Family Medicine; Referring Provider Internal Medicine Gastroenterology; Visit Provider Internal Medicine Gastroenterology
DX: E83.118 Other hemochromatosis (principal)
CPT/HCPCS: 82728; 85025; 99195

== ENCOUNTER → 2024-09-16 11:37 | Outpatient (CLI) | payer BC, SELFPAY ==
[2024-09-16 12:32] LABS: Add Manual Diff / Slide Review NO; Hematocrit 47.7 % (41-53); Hemoglobin 16.6 g/dL (13.5-17.5); Lymphocytes Absolute Auto 2800 /uL (1100-4500); Mean Corpuscular HGB Conc 34.9 % (30-36); Mean Corpuscular Hemoglobin 32.4 PG (26-34); Mean Corpuscular Volume 92.8 fL (80-100); Platelet Count 256 X10^3/uL (150-400)
[2024-09-16 13:05] LABS: 585 Gram Check PASS; Patient Weight <110 lb NO; Therapeutic Phleb Consent Chec Consent signed @ reg; Zero Check Sebra Scale PASS
[2024-09-16 13:06] LABS: Therapeutic Phleb Start Time 1250
[2024-09-16 13:07] LABS: Amount Collected in g 585 g; Amount Collected mL calc 508 mL; Dizziness N; Postdiastolic BP 74 mmHg; Postsystolic BP 111 mmHg; Swelling N; Therapeutic Phleb Stop Time 1256
[2024-09-16 13:20] LABS: Ferritin 339 ng/mL (18-464)
== END ==
PROVIDERS: Internal Medicine Gastroenterology; PCP Family Medicine; Referring Provider Family Medicine; Visit Provider Family Medicine
DX: E83.119 Hemochromatosis, unspecified (principal)
CPT/HCPCS: 82728; 85025; 99195

== ENCOUNTER → 2024-10-05 11:13 | Outpatient (CLI) | payer BC, SELFPAY ==
[2024-10-05 11:31] LABS: Add Manual Diff / Slide Review NO; Hematocrit 47.4 % (41-53); Hemoglobin 16.1 g/dL (13.5-17.5); Lymphocytes Absolute Auto 3200 /uL (1100-4500); Mean Corpuscular HGB Conc 33.9 % (30-36); Mean Corpuscular Hemoglobin 31.5 PG (26-34); Mean Corpuscular Volume 93.0 fL (80-100); Platelet Count 288 X10^3/uL (150-400)
[2024-10-05 12:00] LABS: 585 Gram Check PASS; Patient Weight <110 lb NO; Therapeutic Phleb Consent Chec Consent signed @ reg; Zero Check Sebra Scale PASS
[2024-10-05 12:01] LABS: Therapeutic Phleb Start Time 1135; Therapeutic Phleb Stop Time 1150
[2024-10-05 12:02] LABS: Amount Collected in g 585 g; Amount Collected mL calc 508 mL; Dizziness N; Postdiastolic BP 78 mmHg; Postsystolic BP 120 mmHg; Swelling N
[2024-10-05 12:19] LABS: Ferritin 289 ng/mL (18-464)
== END ==
PROVIDERS: Internal Medicine Gastroenterology; PCP Family Medicine; Referring Provider Family Medicine; Visit Provider Family Medicine
DX: E83.110 Hereditary hemochromatosis (principal)
CPT/HCPCS: 82728; 85025; 99195

== ENCOUNTER → 2024-11-16 10:57 | Outpatient (CLI) | payer BC, SELFPAY ==
[2024-11-16 11:33] LABS: Add Manual Diff / Slide Review NO; Hematocrit 47.2 % (41-53); Hemoglobin 16.4 g/dL (13.5-17.5); Lymphocytes Absolute Auto 2100 /uL (1100-4500); Mean Corpuscular HGB Conc 34.8 % (30-36); Mean Corpuscular Hemoglobin 31.9 PG (26-34); Mean Corpuscular Volume 91.6 fL (80-100); Platelet Count 287 X10^3/uL (150-400)
[2024-11-16 11:53] LABS: Alanine Aminotransferase 26 IU/L (<50); Albumin 4.6 g/dL (3.5-5.0); Albumin Globulin Ratio 1.6 (1.0-2.8); Alkaline Phosphatase 83 U/L (38-126); Blood Urea Nitrogen 15 mg/dL (9-20); Calcium 9.2 mg/dL (8.4-10.2); Carbon Dioxide 22 mmol/L (22-32); Chloride 108 mmol/L (98-107); Cholesterol 145 mg/dL (140-199); Estimated Glomerular Filt Rate > 60 mL/min (>60); Globulin 2.8 g/dL (1.7-4.1); Glucose 135 mg/dL (70-99); HDL Cholesterol 43 mg/dL (40-60); HEMOLYSIS 39 (0-50); Potassium 4.3 mmol/L (3.4-5.1); Sodium 141 mmol/L (137-145); Total Protein 7.4 g/dL (6.3-8.2); Triglycerides 300 mg/dL (35-150)
[2024-11-16 12:03] LABS: 585 Gram Check PASS; Patient Weight <110 lb NO; Therapeutic Phleb Consent Chec Consent signed @ reg; Therapeutic Phleb Start Time 1146; Zero Check Sebra Scale PASS
[2024-11-16 12:04] LABS: Amount Collected in g 585 g; Amount Collected mL calc 508 mL; Dizziness N; Postdiastolic BP 83 mmHg; Postsystolic BP 122 mmHg; Swelling N; Therapeutic Phleb Stop Time 1152
[2024-11-16 12:29] LABS: Ferritin 198 ng/mL (18-464)
[2024-11-16 13:23] LABS: Hemoglobin A1C% w Est Avg Glu 5.3 % (4.0-6.0)
== END ==
PROVIDERS: Internal Medicine Gastroenterology; PCP Family Medicine; Referring Provider Physician Assistant Medical; Visit Provider Physician Assistant Medical
DX: E83.110 Hereditary hemochromatosis (principal); Z13.6 Encounter for screening for cardiovascular disorders; R73.01 Impaired fasting glucose; R74.01 Elevation of levels of liver transaminase levels; E83.119 Hemochromatosis, unspecified; R79.89 Other specified abnormal findings of blood chemistry
CPT/HCPCS: 80053; 80061; 82728; 83036; 85025; 99195

== ENCOUNTER → 2024-12-02 10:43 | Outpatient (CLI) | payer BC, SELFPAY ==
[2024-12-02 11:07] LABS: Hematocrit 48.3 % (41-53); Hemoglobin 16.8 g/dL (13.5-17.5)
[2024-12-02 11:37] LABS: 585 Gram Check PASS; Patient Weight <110 lb NO; Therapeutic Phleb Consent Chec Consent signed @ reg; Zero Check Sebra Scale PASS
[2024-12-02 11:38] LABS: Amount Collected in g 585 g; Amount Collected mL calc 508 mL; Dizziness N; Postdiastolic BP 84 mmHg; Postsystolic BP 142 mmHg; Swelling N; Therapeutic Phleb Start Time 1119; Therapeutic Phleb Stop Time 1126
[2024-12-02 11:58] LABS: Ferritin 220 ng/mL (18-464)
== END ==
PROVIDERS: PCP Family Medicine; Referring Provider Internal Medicine Gastroenterology; Visit Provider Internal Medicine Gastroenterology
DX: E83.119 Hemochromatosis, unspecified (principal)
CPT/HCPCS: 82728; 85014; 85018; 99195

== ENCOUNTER → 2025-01-13 10:52 | Outpatient (CLI) | payer BC, SELFPAY ==
[2025-01-13 11:21] LABS: Add Manual Diff / Slide Review NO; Hematocrit 48.6 % (41-53); Hemoglobin 17.3 g/dL (13.5-17.5); Lymphocytes Absolute Auto 3400 /uL (1100-4500); Mean Corpuscular HGB Conc 35.6 % (30-36); Mean Corpuscular Hemoglobin 32.4 PG (26-34); Mean Corpuscular Volume 90.8 fL (80-100); Platelet Count 280 X10^3/uL (150-400)
[2025-01-13 11:46] LABS: Therapeutic Phleb Consent Chec Consent signed @ reg
[2025-01-13 11:47] LABS: 585 Gram Check PASS; Amount Collected in g 585 g; Amount Collected mL calc 508 mL; Dizziness N; Patient Weight <110 lb NO; Postdiastolic BP 77 mmHg; Postsystolic BP 115 mmHg; Swelling N; Therapeutic Phleb Start Time 1131; Therapeutic Phleb Stop Time 1136; Zero Check Sebra Scale PASS
[2025-01-13 12:14] LABS: Ferritin 159 ng/mL (18-464)
== END ==
PROVIDERS: PCP Family Medicine; Referring Provider Family Medicine; Visit Provider Internal Medicine Gastroenterology
DX: E83.110 Hereditary hemochromatosis (principal)
CPT/HCPCS: 82728; 85025; 99195

== ENCOUNTER → 2025-02-08 10:34 | Outpatient (CLI) | payer BC, SELFPAY ==
[2025-02-08 11:06] LABS: Add Manual Diff / Slide Review NO; Hematocrit 46.9 % (41-53); Hemoglobin 16.5 g/dL (13.5-17.5); Lymphocytes Absolute Auto 2800 /uL (1100-4500); Mean Corpuscular HGB Conc 35.1 % (30-36); Mean Corpuscular Hemoglobin 31.9 PG (26-34); Mean Corpuscular Volume 90.7 fL (80-100); Platelet Count 260 X10^3/uL (150-400)
[2025-02-08 11:52] LABS: Ferritin 133 ng/mL (18-464)
[2025-02-08 12:41] LABS: 585 Gram Check PASS; Patient Weight <110 lb NO; Therapeutic Phleb Consent Chec Consent signed @ reg; Therapeutic Phleb Start Time 1207; Zero Check Sebra Scale PASS
[2025-02-08 12:42] LABS: Amount Collected in g 585 g; Amount Collected mL calc 508 mL; Dizziness N; Postdiastolic BP 81 mmHg; Postsystolic BP 117 mmHg; Swelling N; Therapeutic Phleb Stop Time 1214
== END ==
PROVIDERS: PCP Family Medicine; Referring Provider Family Medicine; Visit Provider Internal Medicine Gastroenterology
DX: E83.110 Hereditary hemochromatosis (principal)
CPT/HCPCS: 82728; 85025; 99195